=== PATIENT | male | born 1990 | race American Indian/Alaskan Native ===

== ENCOUNTER 2019-08-07 16:36 | Emergency (ER) | payer SELFPAY ==
[2019-08-07 16:55] VITALS: BP 156/90
--- NOTE | 2019-08-07 17:01 | Event Note ---
ED Screening Note Date of service: 08/07/19 Time: 16:55 ED Screening Note: This is a a 29 y.o. M. that presents to the ER with left sided facial numbness x 5 days. This initial assessment/diagnostic orders/clinical plan/treatment(s) is/are subject to change based on patients health status, clinical progression and re- assessment by fellow clinical providers in the ED. Further treatment and workup at subsequent clinical providers discretion. Patient/guardian urged not to elope from the ED as their condition may be serious if not clinically assessed and managed. Initial orders include:
--- NOTE | 2019-08-07 17:09 | Emergency Department Report ---
ED ENT HPI - General Chief complaint: Dental/Oral Stated complaint: (L) SIDE OF FACE NUMB Time Seen by Provider: 08/07/19 16:54 Source: patient Mode of arrival: Ambulatory Limitations: No Limitations - History of Present Illness Initial comments: This is a a 29-year-old male that presents to the ER with left sided facial numbness x 5 days. Patient states he is numb on the left side of his face but unable to raise his right eyelid. He reports drooling. Denies slurred speech, weakness, Onset/Timin -: days(s) Severity: mild Severity scale (0 -10): 0 Improves with: none Worsens with: eating Associated Symptoms: denies: fever, cough, gum swelling, toothache, pain with swallowing, sore throat, hearing loss, discharge from ear, rhinorrhea - Related Data Previous Rx's Medication Instructions Recorded Last Taken Type Valacyclovir HCl [Valtrex] 1,000 mg PO TID #21 tablet 08/07/19 Unknown Rx predniSONE [Deltasone] 60 mg PO QDAY #21 tab 08/07/19 Unknown Rx Allergies Allergy/AdvReac Type Severity Reaction Status Date / Time No Known Allergies Allergy Unverified 08/07/19 16:39 ED Dental HPI - General Chief complaint: Dental/Oral Stated complaint: (L) SIDE OF FACE NUMB Time Seen by Provider: 08/07/19 16:54 Source: patient Mode of arrival: Ambulatory Limitations: No Limitations - Related Data Previous Rx's Medication Instructions Recorded Last Taken Type Valacyclovir HCl [Valtrex] 1,000 mg PO TID #21 tablet 08/07/19 Unknown Rx predniSONE [Deltasone] 60 mg PO QDAY #21 tab 08/07/19 Unknown Rx Allergies Allergy/AdvReac Type Severity Reaction Status Date / Time No Known Allergies Allergy Unverified 08/07/19 16:39 ED Review of Systems ROS: Stated complaint: (L) SIDE OF FACE NUMB Other details as noted in HPI Constitutional: denies: chills, fever Eyes: other (dry eye on right). denies: eye pain, eye discharge, vision change ENT: denies: ear pain, throat pain Respiratory: denies: cough, shortness of breath, wheezing Cardiovascular: denies: chest pain, palpitations Gastrointestinal: denies: abdominal pain, nausea, diarrhea Skin: denies: rash, lesions Neurological: numbness (left sided facial numbness). denies: headache, weakness, paresthesias Psychiatric: denies: anxiety, depression ED Past Medical Hx - Past Medical History Previous Medical History?: No - Surgical History Past Surgical History?: No - Social History Smoking Status: Never Smoker Substance Use Type: Marijuana - Medications Home Medications: Home Medications Medication Instructions Recorded Confirmed Last Taken Type Valacyclovir HCl [Valtrex] 1,000 mg PO TID #21 tablet 08/07/19 Unknown Rx predniSONE [Deltasone] 60 mg PO QDAY #21 tab 08/07/19 Unknown Rx ED Physical Exam - General Limitations: No Limitations General appearance: alert, in no apparent distress - ENT ENT exam: Present: normal orophraynx, mucous membranes moist, TM's normal bilaterally, normal external ear exam, other (dropping on the right side of face with smile, right forehead flatting and nasolabial fold flatting on right with smile) - Neck Neck exam: Present: normal inspection - Respiratory Respiratory exam: Present: normal lung sounds bilaterally. Absent: respiratory distress - Cardiovascular Cardiovascular Exam: Present: regular rate, normal rhythm. Absent: systolic murmur, diastolic murmur, rubs, gallop - GI/Abdominal GI/Abdominal exam: Present: soft, normal bowel sounds - Neurological Exam Neurological exam: Present: alert, oriented X3 - Expanded Neurological Exam Expanded Patient oriented to: Present: person, place, time Speech: Present: fluid speech Cranial nerves: EOM's Intact: Normal, Gag Reflex: Normal, Tongue Deviation: Normal, Facial Sensation: Normal, Facial Palsy with Forehead Movement: Abnormal Right Cerebellar function: Finger to Nose: Normal Upper motor neuron: Marlon Neglect: Normal, Pronator Drift: Normal, Sensory Extinction: Normal Sensory exam: Upper Extremity Light Touch: Normal, Upper Extremity Pin Prick: Normal, Upper Extremity Temperature: Normal, UE 2 Point Discrimination: Normal Motor strength exam: RUE: 5, LUE: 5 Best Eye Response ([place]): (4) open spontaneously Best Motor Response ([place]): (6) obeys commands Best Verbal Response ([place]): (5) oriented [place] Total: 15 - Psychiatric Psychiatric exam: Present: normal affect, normal mood - Skin Skin exam: Present: warm, dry, intact, normal color. Absent: rash ED Course Vital Signs 08/07/19 16:54 Temperature 98.1 F Pulse Rate 84 Respiratory 18 Rate Blood Pressure 156/90 O2 Sat by Pulse 100 Oximetry ED Medical Decision Making - Medical Decision Making Patient seen by this provider. Vitals are stable and patient in no acute distress. Right sided facial droop. Weakness involves the entire hemiface and does not spare the forehead. There is no associated extremity weakness or slurred speech. Pt's clinical and physical exam features are most consistent with Lira's Palsy. There is no evidence for stroke, trauma, infection or other serious disorders. Plan is to treat the patient symptomatically with close follow up. Start valacyclovair and prednisone. Patient discharged home stable. Critical care attestation.: If time is entered above; I have spent that time in minutes in the direct care of this critically ill patient, excluding procedure time. 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 Take motrin for pain. Patch your right eye closed at night. Use lubricate on affected eye 4 times an hour to prevent drying and irritation. Follow up with your primary care doctor in 3-5 days for reevaluation. Return to the ER for worsened or expanding weakness, slurred speech, or mental status changes. Prescriptions: predniSONE [Deltasone] 60 mg PO QDAY #21 tab Valacyclovir HCl [Valtrex] 1,000 mg PO TID #21 tablet Referrals: [facility], [facility] [Provider Group] - 3-5 Days [facility] [Provider Group] - 3-5 Days [facility] [Outside] - 3-5 Days Forms: Work/School Release Form(ED) Time of Disposition: 17:47
== END 2019-08-07 17:50 | disposition home or self-care (01) ==
LOC: ED 16:36
DX: G51.0 Bell's palsy (principal); F12.10 Cannabis abuse, uncomplicated; Z79.899 Other long term (current) drug therapy